=== PATIENT | male | born 1950 | race Caucasian/White ===

== ENCOUNTER 2021-06-19 15:23 | Inpatient (IN) | payer MEDICARE, OTHER, SELFPAY ==
[2021-06-19 15:43] VITALS: BP 132/66; PULSE 60; RESP 18; TEMP 37; O2SAT 98; BMI 26.0
--- NOTE | 2021-06-19 17:26 | PCM.PN.HOSP ---
Subjective Subjective 71-year-old male presents from his surgeon's office secondary to a left knee infection. He had surgery about 6 weeks ago but he was to have a left knee infection. Plan will be for orthopedic surgery to take him to the OR tomorrow for washout. He has hypertension and diabetes. Objective Data Objective Data Vital Signs: Vital Signs Temp Pulse Resp BP Pulse Ox 98.6 F 60 18 132/66 H 98 06/19/21 15:43 06/19/21 15:43 06/19/21 15:43 06/19/21 15:43 06/19/21 15:43 Oxygen Delivery Method Room Air Weight: 192 lb 4 oz Body Mass Index (BMI) 26.0 Physical Exam Const alert, oriented x3 and no apparent distress General Appearance: cooperative HEENT normocephalic and moist oral mucous membranes Eyes PERRL, EOMs intact bilaterally and conjunctivae normal Neck supple and no JVD Resp normal respiratory effort, no retractions, no use of accessory muscles and clear to auscultation bilaterally Auscultation: Negative for crackles, rales, rhonchi or wheezes Cardio regular rate, regular rhythm, S1 normal heart sound, S2 normal heart sound and no murmurs GI soft to palpation, non-tender and non-distended; Negative for hepatosplenomegaly Extremity no clubbing, cyanosis or edema Skin Skin Narrative: Left knee is swollen and red Neuro no focal motor deficits and no sensory deficits noted Psych affect normal Appearance: appropriate Assessment & Plan Assessment/Plan (1) Infection of left knee: PLAN: 1. Infection of left knee status post repair 6 weeks ago ?Consult ID for antibiotic recommendations and outpatient management ?Plan for operative washout in the morning ?PT/OT ?Pain management per primary 2. HTN/HLD ?Blood pressures are stable ?Continue with his home blood pressure medications ?Continue with statin 3. DM2 ?We will hold his home medications and place him on a sliding scale insulin as well as long-acting insulin ?Accu-Cheks AC at bedtime ?We will make adjustments as necessary DVT: SCDs Charges/Coding Visit Charges Inpatient E&M: 32458 Subs Hosp L2
[2021-06-19 20:50] VITALS: BP 141/69; PULSE 82; RESP 16; TEMP 36.6; O2SAT 98
[2021-06-19] MEDS: Atorvastatin Calcium 10 MG Tablet PO (22:04)
[2021-06-19] MEDS: amLODIPine 10 MG Tablet PO (22:04)
[2021-06-19 22:10] LABS: Bedside Glucose 192 mg/dL (74-106)
[2021-06-19] MEDS: Insulin Lispro 100 UNIT/ML INSULN.PEN SC (22:13)
[2021-06-19] MEDS: Insulin Glargine-YFGN 100 UNIT/ML Pen SC (22:14)
[2021-06-19] MEDS: Acetaminophen 500 MG Tablet 1000 MG PO (23:36)
[2021-06-19] MEDS: Lactated Ringers 1,000 ML 100 ML IV (23:37)
[2021-06-19] MEDS: 0.9% Saline Lock 10 ML Syringe IV (23:37)
[2021-06-20] VITALS (12 sets, daily range): BP systolic 135–161; BP diastolic 61–96; PULSE 79–109; RESP 16–18; TEMP 36.7–37.9; O2SAT 92–98; BMI 26.0
--- NOTE | 2021-06-20 06:00 | EKG12_ITS ---
Test Reason : MORNING EKG Blood Pressure : / mmHG Vent. Rate : 084 BPM Atrial Rate : 084 BPM P-R Int : 174 ms QRS Dur : 088 ms QT Int : 348 ms P-R-T Axes : 073 046 033 degrees QTc Int : 411 ms Sinus rhythm with occasional Premature ventricular complexes Otherwise normal ECG No previous ECGs available Confirmed by CLAUDINE BLANKENSHIP, DONA ([id number]), newspaper editor AMAURY GREER ([id number]) on 06/23/2021 2:04:28 PM Referred By: JULIANA Confirmed By:HERACLIO CHOW MD
[2021-06-20 06:31] LABS: Bedside Glucose 137 mg/dL (74-106)
[2021-06-20 06:37] LABS: Absolute Lymphocyte Count 1.78 X10^3/uL (0.83-4.51); Absolute Neutrophil Count 5.5 X10^3/uL (2.0-7.7); Basophil# 0.05 X10^3/uL; Basophil% 0.6 % (0-1); Eosinophil# 0.12 X10^3/uL; Eosinophils% 1.4 % (0-5); Hematocrit 32.3 % (40-54); Hemoglobin 10.2 g/dL (13.0-16.5); Lymphocyte # 1.78 X10^3/ul (0.83-4.51); Lymphocyte % 21.2 % (19-41); Mean Corp Hgb Conc 31.6 g/dL (32-36); Mean Corpuscular Hgb 24.2 pg (27.0-32.0); Mean Corpuscular Volume 76.7 fL (80-94); Mean Platelet Vol. 9.6 fl (6.2-12.0); Monocyte# 0.87 X10^3/uL; Monocyte% 10.4 % (0-10); NRBC Flagged by Analyzer 0 % (0-5); Neutrophil # 5.54 X10^3/uL (2.7-7.7); Neutrophil % 66.2 % (47-70); Platelet Count 378 K/mm3 (150-450); RBC Distribution Width CV 13.8 % (11.6-14.6); RBC Distribution Width SD 38.3 fl (35.1-43.9); Red Blood Count 4.21 M/mm3 (4.6-6.2); White Blood Count 8.4 K/mm3 (4.4-11.0)
[2021-06-20 07:00] LABS: Anion Gap 6 (5-15); BUN 20 mg/dL (7-18); BUN/Creat Ratio 28.7 RATIO (10-20); Calcium,Total 8.8 mg/dL (8.5-10.1); Chloride 103 mmol/L (98-107); EST Glomerular Filtration Rate 119 mL/min (>60); Est Glom Filt Rate - Afr Amer 144 mL/min (>60); Estimated Creatinine Clearance 74.37 ml/min; Glucose 129 mg/dL (74-106); Potassium 3.9 mmol/L (3.5-5.1); Sodium Level 136 mmol/L (136-145)
[2021-06-20 07:27] LABS: Hemoglobin A1c 7.3 % (3.8-5.6)
--- NOTE | 2021-06-20 08:03 | PN.HOSP_ITS ---
Subjective Subjective Follow-up on left knee infection: Patient was seen and examined. Yesterday he had his left knee replacement done in [facility] 6 weeks ago. He denied any fever or chills. He is going for knee washout today. Objective Data Objective Data Vital Signs: Vital Signs Temp Pulse Resp BP Pulse Ox 98.6 F 81 16 143/67 H 97 06/20/21 02:10 06/20/21 02:10 06/20/21 02:10 06/20/21 02:10 06/20/21 02:10 Oxygen Delivery Method CPAP Weight: 87.203 kg Body Mass Index (BMI) 26.0 Lab / Micro Data Result Diagrams: 06/20/21 06:00 06/20/21 06:00 Labs: Laboratory Results - last 24 hr 06/19/21 22:02: POC Glucose 192 H 06/20/21 06:00: WBC 8.4, RBC 4.21 L, Hgb 10.2 L, Hct 32.3 L, MCV 76.7 L, MCH 24.2 L, MCHC 31.6 L, RDW Std Deviation 38.3, RDW Coeff of Yue 13.8, Plt Count 378, MPV 9.6, Immature Gran % (Auto) 0.200, Neut % (Auto) 66.2, Lymph % (Auto) 21.2, [place] % (Auto) 10.4 H, Eos % (Auto) 1.4, Baso % (Auto) 0.6, Absolute Neuts (auto) 5.5, Absolute Lymphs (auto) 1.78, Nucleated RBC % 0 06/20/21 06:00: Sodium 136, Potassium 3.9, Chloride 103, Carbon Dioxide 27.0, A nion Gap 6, BUN 20 H, Creatinine 0.70, Estim Creat Clear Calc 74.37, Est GFR (MDRD) Af Amer 144, Est GFR (MDRD) Non-Af 119, BUN/Creatinine Ratio 28.7 H, Glucose 129 H, Calcium 8.8 06/20/21 06:00: Hemoglobin A1c 7.3 H 06/20/21 06:23: POC Glucose 137 H Micro: Microbiology 06/19/21 23:45 Nasal Secretion SARS-CoV-2 Antigen (Rapid) - Final Physical Exam Narrative Physical exam: General: Alert, Oriented x3, Cooperative, No apparent distress, Well developed HEENT: Atraumatic Oral: Moist Mucosa Neck: Supple Lungs: Clear to auscultation Cardiovascular: HS I+II, regular, no murmurs Abdomen: Bowel Sounds Present, Soft, Non Tender Extremities: Left knee swelling, warm to touch, tender to palpate,band-aid over medial aspect is intact. Assessment & Plan Assessment/Plan (1) Infection of left knee: PLAN: 1. Acute left knee infection, s/p left knee replacement 6 weeks ago No leucocytosis or fever. Patient going for knee washout Will start on empiric vancomycin and Zosyn pending intraoperative cultures ID consulted 2. Hypertension, controlled, continue on amlodipine, Lisinopril 3. Type 2 DM, blood sugars fairly controlled, HbA1c 7.3, home metformin is on hold Continue with Lantus 5 units QHS, ISS with blood glucose checks 4. Hyperlipidemia, continue on statin 5. DVT PPx- SCDs Charges/Coding Visit Charges Inpatient E&M: 05445 Subs Hosp L2
[2021-06-20] MEDS: Acetaminophen 500 MG Tablet 1000 MG PO ×2 (08:54→20:10)
[2021-06-20] MEDS: Lactated Ringers 1,000 ML 100 ML IV (09:56)
--- NOTE | 2021-06-20 11:15 | CASEMGMT ---
RN CM Face to Face with patient for initial transition planning/care coordination assessment. RN CM introduced self and role at [facility]. Patient lying in bed, alert and oriented, at bedside. Patient willing to participate in assessment and is able to answer all questions appropriately. Care providers, pharmacy, and demographics verified. Patient wishes to discharge home discussed possible HHC if patient will need IV ATBs at discharge. states they prefer [facility]HC and [facility] for infusions if need. Patient states he has no further needs or concerns at this time. CM to follow for discharge planning needs that may arise. PCP: Brian Specialists: Zully Whyte Pharmacy: [facility] Insurance: [employer] Prescription Benefit: yes Living Will/HPOA: yes, Vee Gar LNOK: , ami Living Arrangements: Patient lives with in 2 story home with bed and bath on first floor. Patient states he was independent at home. Transportation: DME/HHC: Patient states he has shower chair, cane, grab bars, walker, cpap, and pulse ox at home. Patient was attending outpatient therapy at [facility]. 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 Disposition Plan: Patient to discharge home with family support and follow-up plans in place. Will monitor for HHC for IV ATBs at discharge. Charleen DAVIDSON, RN, CM
--- NOTE | 2021-06-20 11:37 | CASEMGMT ---
Addendum entered by Danni Coleman 06/20/21 14:09: Demi @ [facility] made aware anticipate pt will d/c home on IV Vanc and Ceftriaxone 2 GM daily. Per Demi, peripheral edp equipment operator cost of IV atb tubing will be $20/day, plus pt will have cost of medication in addition to this. She states will need Vanc dosage before can determine total cost of medication. CM to f/u on Wednesday. Addendum entered by Danni Coleman 06/20/21 12:08: Call received back from [facility]. They are able to accept pt. Original Note: RN RUTHY NOTE: Informed pt will most likely need 6 wks IV atb's @ d/c and that pt would like to go home /[facility] and [facility] for infusion co, per RN Jamie BLISS. Anticipate discharge Wed or . Call placed to Demi [facility] and she was made aware of above. Referral made. Awaiting acceptance. Demographics faxed to [facility] for financials to be determined. Call placed to [facility]. She was made aware of above. Awaiting return call for insurance benefits and co-pay amt. Sparkle DAVIDSON RN, CM
--- NOTE | 2021-06-20 12:09 | CHAPLAIN ---
Type of Pastoral Visit _x__ Initial Visit ___ Follow-up Visit ___ On-call Visit ___ General Patient Visit ___ Spiritual Assessment ___ Family Conference ___ Bereavement ___ Rapid Response ___ Code Blue ___ Other (describe below) Pastoral Care Referral From _x__ Patient ___ Family ___ Nurse ___ Physician ___ Motors And Controls Tester ___ Mathematical Scientist ___ Other (describe below) Sacrament/Intervention _x__ Active listening ___ Anointing ___ Latter Day ___ Bereavement ___ Communion ___ Heidi exploration ___ ___ Life review _x__ Prayer ___ Reconciliation ___ Sacrament of Sick _x__ Supportive presence ___ Wedding ___ Other (describe below) Pastoral Comments pre surgery prayer given after listening to patient and spouse talk about their needs, concerns, and disappointments; pt is member of a local sikhism and has many people praying for him
[2021-06-20 12:20] LABS: Bedside Glucose 141 mg/dL (74-106)
--- NOTE | 2021-06-20 13:10 | PCM.CONS.GEN ---
Assessment & Plan Assessment/Plan (1) Infection of left knee: PLAN: S/p L knee replacement 05/06/[address] Andrea at [facility]. Reviewed [place] records. No cxs available. Recent course of doxy completed a week ago. OR planned for today. After surgery, plan on empiric vanc/ceftriaxone. Will follow, thank you. Encouraged covid vaccine but he is not interested. HPI Consult Data Date of Consult: 06/20/21 HPI Narrative HPI Narrative: JOSÉ MIGUEL SANCHEZ, is a 71 M who presented to [facility] 06/19 s/p L knee replacement 05/06/21 at [place]. Knee did ok post-op except for one area of incision that never healed, ongoing serous drainage with some occasional blood. No fever, no redness, some swelling. Given course of doxy which completed about a week ago. Plan is for OR today. Unvaccinated for covid. Full ROS performed and neg except as noted above. 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 CPAP (continuous positive airway pressure) dependence Diabetes Failed total left knee replacement H/O pilonidal cyst Hearing loss, left High cholesterol Hypertension Irregular heart beat Rheumatoid arthritis Sleep apnea Home Medications amlodipine [Norvasc] 10 mg PO QHS 06/19/21 [History Last Taken 06/18/21] aspirin [Baby Aspirin] 81 mg PO DAILY 06/19/21 [History Last Taken 06/19/21] empagliflozin [Jardiance] 10 mg PO QHS 06/19/21 [History Last Taken 06/18/21] lisinopril 40 mg PO DAILY 06/19/21 [History Last Taken 06/19/21] lovastatin 20 mg PO QHS 06/19/21 [History Last Taken 06/18/21] meloxicam 15 mg PO DAILY 06/19/21 [History Last Taken 06/19/21] metformin 750 mg PO BID 06/19/21 [History Last Taken 06/19/21] omeprazole 20 mg PO DAILY 06/20/21 [History Last Taken Unknown] Allergy/AdvReac Type Severity Reaction Status Date / Time No Known Drug Allergies Allergy Other Verified 06/19/21 15:59 Surgical History (Updated 06/19/21 @ 15:57 by Sandra Jorge) History of appendectomy Social History Smoking Status: Never smoker Physical Exam Const alert, oriented x3 and no apparent distress General Appearance: cooperative Exam Limitations: no limitations HEENT normocephalic and head/scalp atraumatic Eyes PERRL and EOMs intact bilaterally Neck supple and No nodes Resp normal air movement and clear to auscultation bilaterally Cardio regular rate and regular rhythm GI soft to palpation, non-tender and non-distended Extremity no clubbing, cyanosis or edema Skin Skin Narrative: L anterior knee with open wound, small amount drainage. Neuro CN's II-XII intact bilaterally Lab / Micro Data Result Diagrams: 06/20/21 06:00 06/20/21 06:00 Labs: Laboratory Results - last 24 hr 06/19/21 22:02: POC Glucose 192 H 06/20/21 06:00: WBC 8.4, RBC 4.21 L, Hgb 10.2 L, Hct 32.3 L, MCV 76.7 L, MCH 24.2 L, MCHC 31.6 L, RDW Std Deviation 38.3, RDW Coeff of Yue 13.8, Plt Count 378, MPV 9.6, Immature Gran % (Auto) 0.200, Neut % (Auto) 66.2, Lymph % (Auto) 21.2, [place] % (Auto) 10.4 H, Eos % (Auto) 1.4, Baso % (Auto) 0.6, Absolute Neuts (auto) 5.5, Absolute Lymphs (auto) 1.78, Nucleated RBC % 0 06/20/21 06:00: Sodium 136, Potassium 3.9, Chloride 103, Carbon Dioxide 27.0, Anion Gap 6, BUN 20 H, Creatinine 0.70, Estim Creat Clear Calc 74.37, Est GFR (MDRD) Af Amer 144, Est GFR (MDRD) Non-Af 119, BUN/Creatinine Ratio 28.7 H, Glucose 129 H, Calcium 8.8 06/20/21 06:00: Hemoglobin A1c 7.3 H 06/20/21 06:23: POC Glucose 137 H 06/20/21 11:22: POC Glucose 141 H Micro: Microbiology 06/19/21 23:45 Nasal Secretion SARS-CoV-2 Antigen (Rapid) - Final
--- NOTE | 2021-06-20 15:05 | KNEE_PTH ---
PATIENT: JOSÉ MIGUEL SANCHEZ LOC: MS3 U#:[id number] AGE/SX: 71/M ROOM: [facility] RE06/19/[address]: Dr. Stanley Alfred MD : 1950 BED: 1 DIS: 06/23/2021 SPEC #: [id number] RECD: 06/23/21 07:41 STATUS: DEMARIO REQ #: [id number] FARHAN: 06/20/21 15:[address]: William Andrea DEPT: SURGICAL PATHOLOGY RECD BY: Meghan Sherwood ENTERED: 06/23/21 08:56 SP TYPE: TOTAL KNEE OTHR DR: DO Dr. Stanley Barbosa MD Dr. Nicholas F Kotsonis, MD Dr. Robert Leininger, MD Dr. Steven Widmer, MD Tissues: Knee, NOS Procedures: Decalcification bone/plaque Surgery Specimen Level IV Comments: @ Ordering doctor for DEC edited from to DR.SWIDME Lea by ALIREZA at 06/23/21 1453 @ Ordering doctor for SUIV edited from to @ by ALIREZA at 06/23/21 1453 @ Submitting doctor edited from to @ by ALIREZA at 06/23/21 1453 HEADER OPERATION: Left total knee poly exchange, I & D, sinus tract excision PRE-OP DIAGNOSIS: Presence of left artificial knee joint, osteoarthritis left knee TISSUE SUBMITTED: Left knee sinus tract MICROSCOPIC DIAGNOSIS Left knee sinus tract: A piece of skin with underlying tissue with acute and chronic inflammation, abscess formation and foreign body giant cell reaction. SJ:charla 06/24/2021 COMMENT A few fragments of bone are also noted in the dermis and underlying tissue. MICROSCOPIC DESCRIPTION Slides are reviewed. GROSS DESCRIPTION Received in fixative is one container labeled with the patient's name and designated left knee sinus tract. The specimen consists of a piece of skin with underlying tissue measuring 4 x 1.2 cm and up to 1 cm in thickness. The skin surface shows focal area of ulceration. Rug Cutter sections are submitted in two cassettes. / JAIME:charla 06/23/2021 TC:2 CPT: 78426
[2021-06-20] MEDS: Lactated Ringers 1,000 ML 30 ML IV (15:30)
[2021-06-20] MEDS: Cefazolin 2 GM in 0.9% Normal Saline 100 ML IV (16:12)
--- NOTE | 2021-06-20 16:59 | OP.PCM_ITS ---
Report of Operation Date of Procedure: 06/20/21 Pre-Operative Diagnosis: Left knee draining wound/periprosthetic joint infection acute Post-Operative Diagnosis: Left knee draining wound/acute periprosthetic joint infection Surgery/Procedure Performed:: 1. Irrigation debridement left total knee replacement with polyethylene exchange 2. Complete synovectomy left knee 3. Sinus tract excision 3 cm x 1 cm left knee Description of Surgical Findings:: Sinus tract communicated from outside joint down into the knee through the arthrotomy. Surgeon: William Andrea brake shoe rebuilder: Allen Levine Type of Anesthesia: General Anesthesiologist: Nakul Escobedo Special Medications: Ancef was given after cultures were taken. Vancomycin 1 g was placed in the wound prior to closure. Specimen's removed: 3 separate specimens were sent to microbiology Estimated Blood Loss (mL): 200 Fluids Replaced: 1500 mL crystalloid Description of Procedure: 71 yo M history of L TKA 6 weeks ago presents with trinidad ining sinus wound and anterior knee. Reviewed options were discussed the patient. Based on acuity of the symptoms and organism irrigation debridement with polyethylene exchange is recommended. Risks and benefits of the procedure were discussed with the patient including but not limited to blood loss, DVTs, PEs, neurovascular damage, infection, general risk of anesthesia including loss of life. Demonstrated understanding and was able to sign informed consent. On the date of procedure patient'sL lower extremity was marked in the preoperative area. The patient was then taken back to the operating room where the patient was placed on the table in the supine position. All bony prominences were identified a well-padded. Anesthesia assumed control of the C-spine and airway and remained controlled throughout the remainder of the procedure. A tourniquet was placed on the operative thigh and the leg was prepped in a sterile fashion. The surgeon then scrubbed at this time .Upon reentering the room left lower extremity was draped in a standard orthopedic fashion. A timeout was then called and everyone agreed upon the side, the site, the procedure to be performed, patient's identity and antibiotics given. A midline skin incision was made and sharp dissection was taken down through skin subcutaneous tissue and fat. At the distal portion of the incision there was a 3 cm x 1 cm draining sinus area which was ellipsed and excised. This communicated down into the joint through the arthrotomy. Appropriate flaps were elevated medially and laterally. His arthrotomy was identified and the standard medial parapatellar incision was made and the patella was subluxed laterally. The standard deep MCL release was done. At this point an aggressive synovectomy commenced. Our attention was first turned towards the subpatellar pouch and all suspicious synovium and tissues were debrided. We then directed our attention towards medial lateral gutters were these tissues were aggressively debrided. Knee was then flexed up the polyethylene was removed. Once polyethylene was removed we did the remainder of the synovium in the medial and lateral gutters and along the lateral structures and MCL. We then debrided the posterior knee. Knee was flexed up and culture was taken from the femoral notch. And also there was a membrane beneath the tibial baseplate that was removed and sent for culture. He had completed our synovectomy and were happy with the joint. We then used a chlorahexadine scrub sponge and physically scrub the metal implants using a scrub sponge but nothing abrasive. We also scrubbed the remainder of the wound with chlorhexidine. 6 L of normal saline were then irrigated throughout the wound with low-pressure lavage and the wound was once again explored. All remaining tissue that was suspicious was seen in the wound was once again irrigated with normal saline. 9 mm polyethylene was then opened and put back into place after appropriate trialing. Tourniquet was let down and hemostasis was obtained as well as possible. Lateral drain was placed in 2 g of vancomycin powder were placed in the wound/joint. Once the final components were placed the wound was copiously irrigated with normal saline solution. The wound was closed in a layer tejada fashion using #1 vicryl interrupted sutures for the arthrotomy, 2-0 interrupted Vicryl for the subcuticular layer and evaristo for final skin closure proximally, nylons distally where the most skin tension was from the excised sinus tract. A sterile compressive dressing was then placed. The patient was then awakened from anesthesia, transferred to the [facility] and transferred to the PACU for recovery. Post op plan Infectious diseases already seen and evaluated the patient patient will be placed on ceftriaxone and vancomycin for broad-spectrum treatment postoperatively until we follow cultures. Aspirin 81 mg twice daily for DVT prophylaxis. Weightbearing as tolerated, range of motion as tolerated. Follow- up in office in 2 weeks. Mepilex dressing. My physician cabin service agent (PE) was a vital part of this case. They were important in appropriate retraction during the case, and protection of soft tissues during bony cuts. Their intimate knowledge of the case and my steps aided in safe and expedient completion of the procedure as well as appropriate position of the leg during the case. They were also vital in assisting with closure under my direct supervision. Grafts/Implants Used: Quimby X3 9 mm CS polyethylene Complications No intraoperative complications Admit VTE Documentation VTE Present on Admission: No VTE Mechan Device Prophylaxis: SCD's and Thigh High RENETTA Hose VTE Pharm Prophylaxis ordered?: Yes
--- NOTE | 2021-06-20 17:38 | RAD_ITS ---
EXAM: XR LEFT KNEE, 1 OR 2 VIEWS CLINICAL INDICATION: post op -- AP and Lateral xray of operative knee in PACU TECHNIQUE: Frontal and/or lateral views of the left knee. This report was created using [employer] report [employer] technology. COMPARISON: None. FINDINGS: BONES/JOINTS: Left knee arthroplasty with prosthesis in good position. Overlying skin evaristo. Gas within the joint and soft tissues. No acute fracture. No subluxation. Normal alignment. No sclerotic or destructive changes observed. SOFT TISSUES: See findings above and below. TUBES, LINES AND DEVICES: Drain in the soft tissues laterally. RAD/Knee 1 or 2 Views IMPRESSION: Status post total knee arthroplasty with a prosthesis in good position. Electronically Signed: Leobardo Feliciano MD at 18:02 EDT ,
[2021-06-20 17:41] LABS: Synovial Fld Polynuclear WBC # 7.397 10^3/uL
[2021-06-20 17:42] LABS: RBC /Synovial Fluid 0.471 10^6/uL (0)
[2021-06-20 17:56] LABS: Bedside Glucose 165 mg/dL (74-106)
[2021-06-20] MEDS: Lactated Ringers 1,000 ML 125 ML IV (18:20)
[2021-06-20] MEDS: Morphine 2 MG/ML Syringe IV (19:06)
[2021-06-20] MEDS: 0.9% Saline Lock 10 ML Syringe IV (19:07)
[2021-06-20 19:28] LABS: AUTO B FLUID DILUENT BKGD CT WBC <0.1 RBC <0.01 (W<.1,R<.01); Appearance /Synovial Fluid Turbid (CLEAR); Color / Synovial Fluid Red (Pale Yellow); Lymph 4 %; Monocyte /Synovial Fluid 6 %; Neutrophil 90 % (0-25); Source / Synovial Fluid KNEE
[2021-06-20 19:29] LABS: Body Fluid QC Type(s) BF3Q
[2021-06-20] MEDS: oxyCODONE 5 MG Tablet PO (20:11)
[2021-06-20] MEDS: Ensure Surgery 237 ML LIQUID PO (20:12)
--- NOTE | 2021-06-20 21:06 | PCM.RX.CS ---
Consult Pharmacy has been consulted to manage selected antiobiotic: Vancomycin Type of Consult: New start Suspected Infection: Other Labs: Sodium 136 mmol/L (136-145) 06/20/21 06:00 Potassium 3.9 mmol/L (3.5-5.1) 06/20/21 06:00 Chloride 103 mmol/L (98-107) 06/20/21 06:00 Carbon Dioxide 27.0 mmol/L (21.0-32.0) 06/20/21 06:00 Anion Gap 6 (5-15) 06/20/21 06:00 BUN 20 mg/dL (7-18) H 06/20/21 06:00 Creatinine 0.70 mg/dL (0.70-1.30) 06/20/21 06:00 Est GFR (MDRD) Af Amer 144 mL/min (>60) 06/20/21 06:00 Est GFR (MDRD) Non-Af 119 mL/min (>60) 06/20/21 06:00 BUN/Creatinine Ratio 28.7 RATIO (10-20) H 06/20/21 06:00 Glucose 129 mg/dL (74-106) H 06/20/21 06:00 Microbiology: Microbiology 06/19/21 23:45 Nasal Secretion SARS-CoV-2 Antigen (Rapid) - Final Goal Trough: 15-20 mcg/mL Pharmacy Plan for Drug Dosing: NEW START IV VANCOMYCIN Consulting Physician: yobani Indication: infected knee Goal Trough: 15-20 SrCr: 0.8 (adjusted for age) CrCl: 74 mls/min Comments: pt received a 2000mg loading dose on 06/20/21 at 2100 Vancomcyin Dose: based on pts weight and renal function, recommend an intitial dose of Vancomycin 1250mg q12h starting 06/21/21 at 0900. trough before the 4th total dose Pending Level: 06/22/21 at 0830 Pharmacy Service will continue to monitor and adjust dosing as required. Follow-Up Labs: Trough Vancomycin - 06/22/21 at 0830
[2021-06-20] MEDS: amLODIPine 10 MG Tablet PO (21:37)
[2021-06-20] MEDS: Aspirin 81 MG TAB.CHEW PO (21:37)
[2021-06-20] MEDS: Insulin Glargine-YFGN 100 UNIT/ML Pen SC (21:37)
[2021-06-20] MEDS: Atorvastatin Calcium 10 MG Tablet PO (21:37)
[2021-06-20] MEDS: Senna/Docusate Sodium 1 Tablet 2 TABLET PO (21:37)
[2021-06-20 21:45] LABS: Bedside Glucose 283 mg/dL (74-106)
[2021-06-21] MEDS: Acetaminophen 500 MG Tablet 1000 MG PO ×3 (02:07→17:27)
[2021-06-21 02:53] VITALS: BP 151/79; PULSE 94; RESP 16; TEMP 37.1; O2SAT 97
[2021-06-21] MEDS: oxyCODONE 5 MG Tablet PO ×3 (06:06→17:36)
[2021-06-21] MEDS: Insulin Lispro 100 UNIT/ML INSULN.PEN SC ×4 (06:27→21:53)
[2021-06-21 06:28] LABS: Hematocrit 31.4 % (40-54); Hemoglobin 9.8 g/dL (13.0-16.5); Mean Corp Hgb Conc 31.2 g/dL (32-36); Mean Corpuscular Hgb 23.9 pg (27.0-32.0); Mean Corpuscular Volume 76.6 fL (80-94); Mean Platelet Vol. 9.7 fl (6.2-12.0); Platelet Count 426 K/mm3 (150-450); RBC Distribution Width CV 13.7 % (11.6-14.6)
[2021-06-21 06:55] LABS: Anion Gap 6 (5-15); BUN 20 mg/dL (7-18); BUN/Creat Ratio 26.2 RATIO (10-20); Calcium,Total 8.6 mg/dL (8.5-10.1); Chloride 102 mmol/L (98-107); Creatinine, Serum 0.76 mg/dL (0.70-1.30); EST Glomerular Filtration Rate 107 mL/min (>60); Est Glom Filt Rate - Afr Amer 129 mL/min (>60); Estimated Creatinine Clearance 74.37 ml/min; Glucose 166 mg/dL (74-106); Potassium 4.1 mmol/L (3.5-5.1); Sodium Level 135 mmol/L (136-145)
--- NOTE | 2021-06-21 08:02 | PCM.PN.ORT ---
Subjective Subjective The patient was sitting in bed upon examination. Patient denies any chest pain, shortness of breath, dizziness, lightheadedness, nausea or vomiting, or calf pain. Pain is controlled on medications. No adverse overnight events. Patient appears to be doing very well this morning. Overnight he did have some tachycardia. He denies any chest pain or racing heart. Patient states the pain has been controlled. He did have cultures intraoperatively and currently are pending. Infectious disease has been consulted and he is on ceftriaxone and vancomycin while following cultures. Objective Data Objective Data Vital Signs: Vital Signs Temp Pulse Resp BP Pulse Ox 98.7 F 94 16 151/79 H 97 06/21/21 02:53 06/21/21 02:53 06/21/21 02:53 06/21/21 02:53 06/21/21 02:53 Oxygen Delivery Method CPAP Weight: 87.203 kg Body Mass Index (BMI) 26.0 Intake & Output: Intake and Output for Last 24 Hours 06/19/21 06/20/21 06/21/21 23:59 23:59 23:59 Intake Total 3908.33 / 3908.33 Output Total 810 / 810 1000 / 1000 Balance 3098.33 / 3098.33 -1000 / -1000 Lab / Micro Data Result Diagrams: 06/21/21 05:54 06/21/21 05:54 Labs: Laboratory Results - last 24 hr 06/20/21 11:22: POC Glucose 141 H 06/20/21 15:37: Synovial Source KNEE, Synovial Color Red, Synovial Appearance Turbid, Synovial WBC 41.5700 H, Synovial RBC 0.471 H, Synovial Tot Cell Ct 41.8550 H, Synov Polynuclear WBCs 7.397, Synovial Neutrophils 90 H, Synovial Lymphocytes 4, Synovial Monocytes 6, Synovial Polynuclear % 89.0, Synovial Mononuclear % 11.0, Synovial Path Comment May follow 06/20/21 17:52: POC Glucose 165 H 06/20/21 21:35: POC Glucose 283 H 06/21/21 05:54: WBC 10.0, RBC 4.10 L, Hgb 9.8 L, Hct 31.4 L, MCV 76.6 L, MCH 23.9 L, MCHC 31.2 L, RDW Std Deviation 38.0, RDW Coeff of Yue 13.7, Plt Count 426, MPV 9.7 04/16/22 05:54: Sodium 135 L, Potassium 4.1, Chloride 102, Carbon Dioxide 27.0, Anion Gap 6, BUN 20 H, Creatinine 0.76, Estim Creat Clear Calc 74.37, Est GFR (MDRD) Af Amer 129, Est GFR (MDRD) Non-Af 107, BUN/Creatinine Ratio 26.2 H, Glucose 166 H, Calcium 8.6 Micro: Microbiology 06/19/21 23:45 Nasal Secretion SARS-CoV-2 Antigen (Rapid) - Final Radiography Diagnostic Testing: Radiology Impression Knee X-Ray 06/20/21 17:38 IMPRESSION: Status post total knee arthroplasty with a prosthesis in good position. Electronically Signed: Leobardo Feliciano MD at 18:02 EDT , Physical Exam Narrative Vital signs stable and afebrile. Overnight patient did have low-grade fever and tachycardia. Currently denies any chest pain or shortness of breath. Overall appears well this morning SCDs and RENETTA hose are placed bilaterally Patient is able to plantarflex and dorsiflex actively. Sensation is intact to light touch to saphenous, sural, superficial and deep peroneal, and tibial distribution. Dressing is clean dry and intact. Hemovac drain in place: Mild amount in canister. Per documentation appears to have had 110 cc of output from the drain. Negative Homans bilaterally, negative signs and symptoms of DVT. Const alert, oriented x3 and no apparent distress Assessment & Plan Assessment/Plan (1) Infection of left knee: PLAN: 1. S/P irrigation debridement left total knee replacement with polyethylene exchange, complete synovectomy left knee, and excision sinus tract POD #1 2. Continue Pain Medications: Tylenol and oxycodone 3. DVT Prophylaxis: Take 81 mg aspirin twice daily for 4 weeks postoperatively for DVT prophylaxis 4. PT/OT: Weightbearing as tolerated with walker 5. H & H: 9.8/31.4, asymptomatic. Postoperative anemia secondary to acute blood loss from surgery without any intra operative complications. 6. Continue postoperative medical management per medicine 7. Consultation infectious disease: Infectious disease has placed patient on ceftriaxone and vancomycin. Cultures are currently pending 8. Hemovac drain: We will continue with drain for minimum 2 days postoperatively. We will reassess output tomorrow. According to documentation it appears there is been 110 cc output from the drain. 9. Encouraged Incentive Spirometry 10. Disposition: Continue to follow patient with cultures and appreciate input from infectious disease. Continue with physical therapy weightbearing as tolerated with walker. We will follow patient tomorrow with the possibility of removal of drain. I have reviewed the [place] Automated Rx Reporting System (OARRS) report for this patient for refill pattern and other prescriber involvement as part of the appropriate surveillance for the provision of acute and chronic controlled medications. The report was requested and reviewed on the date of this entry and was considered in the prescribing process.
--- NOTE | 2021-06-21 08:14 | PN.HOSP_ITS ---
Subjective Subjective Follow-up on post-op left knee infection: Patient was seen and examined. He denies any new complaints. His pain is controlled. No acute events overnight. Denies any fever or chills. Intraoperative cultures are pending. Objective Data Objective Data Vital Signs: Vital Signs Temp Pulse Resp BP Pulse Ox 98.7 F 94 16 151/79 H 97 06/21/21 02:53 06/21/21 02:53 06/21/21 02:53 06/21/21 02:53 06/21/21 02:53 Oxygen Delivery Method CPAP Weight: 87.203 kg Body Mass Index (BMI) 26.0 Intake & Output: Intake and Output for Last 24 Hours 06/19/21 06/20/21 06/21/21 23:59 23:59 23:59 Intake Total 3908.33 / 3908.33 Output Total 810 / 810 1000 / 1000 Balance 3098.33 / 3098.33 -1000 / -1000 Lab / Micro Data Result Diagrams: 06/21/21 05:54 06/21/21 05:54 Labs: Laboratory Results - last 24 hr 06/20/21 11:22: POC Glucose 141 H 06/20/21 15:37: Synovial Source KNEE, Synovial Color Red, Synovial Appearance Turbid, Synovial WBC 41.5700 H, Synovial RBC 0.471 H, Synovial Tot Cell Ct 41.8550 H, Synov Polynuclear WBCs 7.397, Synovial Neutrophils 90 H, Synovial Lymphocytes 4, Synovial Monocytes 6, Synovial Polynuclear % 89.0, Synovial Mononuclear % 11.0, Synovial Path Comment May follow 06/20/21 17:52: POC Glucose 165 H 06/20/21 21:35: POC Glucose 283 H 06/21/21 05:54: WBC 10.0, RBC 4.10 L, Hgb 9.8 L, Hct 31.4 L, MCV 76.6 L, MCH 23.9 L, MCHC 31.2 L, RDW Std Deviation 38.0, RDW Coeff of Yue 13.7, Plt Count 426, MPV 9.7 06/21/21 05:54: Sodium 135 L, Potassium 4.1, Chloride 102, Carbon Dioxide 27.0, Anion Gap 6, BUN 20 H, Creatinine 0.76, Estim Creat Clear Calc 74.37, Est GFR (MDRD) Af Amer 129, Est GFR (MDRD) Non-Af 107, BUN/Creatinine Ratio 26.2 H, Glucose 166 H, Calcium 8.6 Micro: Microbiology 06/19/21 23:45 Nasal Secretion SARS-CoV-2 Antigen (Rapid) - Final Radiography Diagnostic Testing: Radiology Impression Knee X-Ray 06/20/21 17:38 IMPRESSION: Status post total knee arthroplasty with a prosthesis in good position. Electronically Signed: Leobardo Feliciano MD at 18:02 EDT , Physical Exam Narrative Physical exam: General: Alert, Oriented x3, Cooperative, No apparent distress HEENT: Atraumatic Oral: Moist Mucosa Neck: Supple Lungs: Clear to auscultation Cardiovascular: HS I+II, regular, no murmurs Abdomen: Bowel Sounds Present, Soft, Non Tender Extremities: Left knee swollen, cooling mat in place Assessment & Plan Assessment/Plan (1) Infection of left knee: PLAN: 1. POD #0 s/p irrigation and irrigation of the left knee replacement with polyethylene exchange/complete synovectomy/sinus tract excision. Patient had left knee replacement 6 weeks ago in [facility] Synovial fluid analysis showed WBC count of 41,000+ Intraoperative cultures are pending Continue on empiric vancomycin and ceftriaxone ID consulted 2. Hypertension, controlled, continue on amlodipine, Lisinopril 3. Type 2 DM, blood sugars fairly controlled, HbA1c 7.3, home metformin on hold Increase Lantus to 10 units QHS, continue with ISS with blood glucose checks 4. Hyperlipidemia, continue on statin 5. DVT PPx- SCDs Charges/Coding Visit Charges Inpatient E&M: 62340 Subs Hosp L2
[2021-06-21] MEDS: Pantoprazole Sodium 20 MG Tablet PO (08:39)
[2021-06-21 08:51] VITALS: BP 145/70; PULSE 95; RESP 16; TEMP 36.6; O2SAT 97
[2021-06-21] MEDS: Aspirin 81 MG TAB.CHEW PO ×2 (09:02→21:53)
[2021-06-21] MEDS: Lisinopril 40 MG Tablet PO (09:02)
[2021-06-21] MEDS: Senna/Docusate Sodium 1 Tablet 2 TABLET PO ×2 (09:03→21:55)
[2021-06-21 12:06] LABS: Bedside Glucose 240 mg/dL (74-106)
[2021-06-21 12:06] LABS: Bedside Glucose 153 mg/dL (74-106)
[2021-06-21 15:04] VITALS: BP 116/69; PULSE 83; RESP 16; TEMP 36.7; O2SAT 96
[2021-06-21 16:26] LABS: Bedside Glucose 220 mg/dL (74-106)
[2021-06-21] MEDS: Ensure Surgery 237 ML LIQUID PO (17:24)
[2021-06-21 20:19] VITALS: BP 134/69; PULSE 85; RESP 18; TEMP 37; O2SAT 95
[2021-06-21] MEDS: Morphine 2 MG/ML Syringe IV (20:33)
[2021-06-21] MEDS: 0.9% Saline Lock 10 ML Syringe IV (20:33)
[2021-06-21] MEDS: Atorvastatin Calcium 10 MG Tablet PO (21:54)
[2021-06-21] MEDS: Insulin Glargine-YFGN 100 UNIT/ML Pen 10 UNIT SC (21:54)
[2021-06-21] MEDS: amLODIPine 10 MG Tablet PO (21:55)
[2021-06-21 22:06] LABS: Bedside Glucose 231 mg/dL (74-106)
[2021-06-22] MEDS: 0.9% Saline Lock 10 ML Syringe IV ×3 (01:39→11:26)
[2021-06-22] MEDS: Morphine 2 MG/ML Syringe IV ×3 (01:39→11:26)
[2021-06-22] MEDS: Acetaminophen 500 MG Tablet 1000 MG PO ×3 (01:41→17:40)
[2021-06-22 01:52] VITALS: BP 129/61; PULSE 85; RESP 18; TEMP 36.8; O2SAT 96
[2021-06-22 05:56] LABS: Hematocrit 29.9 % (40-54); Hemoglobin 9.5 g/dL (13.0-16.5); Mean Corp Hgb Conc 31.8 g/dL (32-36); Mean Corpuscular Hgb 24.4 pg (27.0-32.0); Mean Corpuscular Volume 76.9 fL (80-94); Mean Platelet Vol. 9.9 fl (6.2-12.0); Platelet Count 364 K/mm3 (150-450); RBC Distribution Width SD 38.7 fl (35.1-43.9); Red Blood Count 3.89 M/mm3 (4.6-6.2); White Blood Count 8.6 K/mm3 (4.4-11.0)
[2021-06-22 06:29] LABS: ALB/GLOB Ratio 0.7 RATIO (0.9-2.4); AST(SGOT) 13 U/L (15-37); Alanine Aminotransfer ALT/SGPT 20 U/L (16-61); Albumin, Serum 2.8 g/dL (3.2-5.0); Alkaline Phosphatase 85 U/L (45-117); Anion Gap 4 (5-15); BUN 20 mg/dL (7-18); BUN/Creat Ratio 25.5 RATIO (10-20); Calcium,Total 8.6 mg/dL (8.5-10.1); Chloride 103 mmol/L (98-107); Creatinine, Serum 0.78 mg/dL (0.70-1.30); EST Glomerular Filtration Rate 104 mL/min (>60); Est Glom Filt Rate - Afr Amer 125 mL/min (>60); Estimated Creatinine Clearance 74.37 ml/min; Globulin 3.8 g/dL (2.2-4.2); Glucose 165 mg/dL (74-106); Potassium 4.4 mmol/L (3.5-5.1); Protein, Total 6.6 g/dL (6.4-8.2); Sodium Level 135 mmol/L (136-145)
[2021-06-22] MEDS: Lactated Ringers 1,000 ML 15 ML IV (07:08)
[2021-06-22] MEDS: Insulin Lispro 100 UNIT/ML INSULN.PEN SC ×4 (07:12→21:01)
[2021-06-22 07:20] LABS: Bedside Glucose 167 mg/dL (74-106)
--- NOTE | 2021-06-22 07:25 | PN.HOSP_ITS ---
Subjective Subjective Follow-up on post-op left knee infection: Patient was seen and examined. He complains of pain in left knee. No acute events overnight. He denies any fever, chills, diarrhea or nausea. Objective Data Objective Data Vital Signs: Vital Signs Temp Pulse Resp BP Pulse Ox 98.2 F 85 18 129/61 H 96 06/22/21 01:52 06/22/21 01:52 06/22/21 01:52 06/22/21 01:52 06/22/21 01:52 Oxygen Delivery Method Room Air Weight: 87.203 kg Body Mass Index (BMI) 26.0 Intake & Output: Intake and Output for Last 24 Hours 06/20/21 06/21/21 06/22/21 23:59 23:59 23:59 Intake Total 3908.33 / 3908.33 600 / 800 787.75 / 787.75 Output Total 810 / 810 1425 / 1428 403 / 403 Balance 3098.33 / 3098.33 -825 / -628 384.75 / 384.75 Lab / Micro Data Result Diagrams: 06/22/21 04:57 06/22/21 04:57 Labs: Laboratory Results - last 24 hr 06/21/21 06:25: POC Glucose 153 H 06/21/21 11:45: POC Glucose 240 H 06/21/21 16:05: POC Glucose 220 H 06/21/21 21:52: POC Glucose 231 H 06/22/21 04:57: WBC 8.6, RBC 3.89 L, Hgb 9.5 L, Hct 29.9 L, MCV 76.9 L, MCH 24.4 L, MCHC 31.8 L, RDW Std Deviation 38.7, RDW Coeff of Yue 14.0, Plt Count 364, MPV 9.9 06/22/21 04:57: Sodium 135 L, Potassium 4.4, Chloride 103, Carbon Dioxide 28.0, Anion Gap 4 L, BUN 20 H, Creatinine 0.78, Estim Creat Clear Calc 74.37, Est GFR (MDRD) Af Amer 125, Est GFR (MDRD) Non-Af 104, BUN/Creatinine Ratio 25.5 H, Glucose 165 H, Calcium 8.6, Total Bilirubin 0.30, AST 13 L, ALT 20, Alkaline Phosphatase 85, Total Protein 6.6, Albumin 2.8 L, Globulin 3.8, Albumin/Globulin Ratio 0.7 L 06/22/21 07:04: POC Glucose 167 H Micro: Microbiology 06/20/21 15:37 Fluid - Synovial (joint) Gram Stain - Final 06/20/21 15:37 Fluid - Synovial (joint) Body Fluid Culture - Preliminary No growth-Final to follow 06/20/21 Unknown Tissue - Knee Gram Stain - Final 06/20/21 Unknown Tissue - Knee Wound Culture - Preliminary No growth-Final to follow 06/20/21 Unknown Tissue - Knee Gram Stain - Final 06/20/21 Unknown Tissue - Knee Wound Culture - Preliminary No growth-Final to follow 06/20/21 Unknown Tissue - Knee Gram Stain - Final 06/20/21 Unknown Tissue - Knee Wound Culture - Preliminary No growth-Final to follow 06/19/21 23:45 Nasal Secretion SARS-CoV-2 Antigen (Rapid) - Final Physical Exam Narrative Physical exam: General: Alert, Oriented x3, Cooperative, No apparent distress HEENT: Atraumatic Oral: Moist Mucosa Neck: Supple Lungs: Clear to auscultation Cardiovascular: HS I+II, regular, no murmurs Abdomen: Bowel Sounds Present, Soft, Non Tender Extremities: Left knee dressing is intact and clean, cooling mat in place Assessment & Plan Assessment/Plan (1) Infection of left knee: PLAN: 1. POD #2 s/p irrigation and irrigation of the left knee replacement with polyethylene exchange/complete synovectomy/sinus tract excision. Patient had left knee replacement 6 weeks ago in [facility] Synovial fluid analysis showed WBC count of 41,000+ Intraoperative cultures are pending Continue on empiric vancomycin and ceftriaxone ID consulted 2. Hypertension, controlled, continue on amlodipine, Lisinopril 3. Type 2 DM, blood sugars fairly controlled, HbA1c 7.3, home metformin on hold Continue on Lantus to 10 units QHS, continue with ISS with blood glucose checks 4. Hyperlipidemia, continue on statin 5. DVT PPx- SCDs Charges/Coding Visit Charges Inpatient E&M: 79169 Subs Hosp L2
[2021-06-22 09:26] LABS: Vancomycin, Trough Level 11.5 ug/mL (5.0-15.0)
[2021-06-22 09:44] VITALS: BP 138/67; PULSE 89; RESP 16; TEMP 36.6; O2SAT 96
[2021-06-22] MEDS: oxyCODONE 5 MG Tablet PO ×2 (09:56→14:22)
[2021-06-22] MEDS: Senna/Docusate Sodium 1 Tablet 2 TABLET PO (09:56)
[2021-06-22] MEDS: Pantoprazole Sodium 20 MG Tablet PO (09:57)
[2021-06-22] MEDS: Aspirin 81 MG TAB.CHEW PO ×2 (09:57→21:01)
[2021-06-22] MEDS: Lisinopril 40 MG Tablet PO (09:57)
--- NOTE | 2021-06-22 10:31 | PCM.RX.CS ---
Consult Pharmacy has been consulted to manage selected antiobiotic: Vancomycin Type of Consult: Follow-up Suspected Infection: Skin/Soft tissue Labs: Sodium 135 mmol/L (136-145) L 06/22/21 04:57 Potassium 4.4 mmol/L (3.5-5.1) 06/22/21 04:57 Chloride 103 mmol/L (98-107) 06/22/21 04:57 Carbon Dioxide 28.0 mmol/L (21.0-32.0) 06/22/21 04:57 Anion Gap 4 (5-15) L 06/22/21 04:57 BUN 20 mg/dL (7-18) H 06/22/21 04:57 Creatinine 0.78 mg/dL (0.70-1.30) 06/22/21 04:57 Est GFR (MDRD) Af Amer 125 mL/min (>60) 06/22/21 04:57 Est GFR (MDRD) Non-Af 104 mL/min (>60) 06/22/21 04:57 BUN/Creatinine Ratio 25.5 RATIO (10-20) H 06/22/21 04:57 Glucose 165 mg/dL (74-106) H 06/22/21 04:57 Vancomycin Trough 11.5 ug/mL (5.0-15.0) 06/22/21 08:31 Microbiology: Microbiology 06/20/21 15:37 Fluid - Synovial (joint) Gram Stain - Final 06/20/21 15:37 Fluid - Synovial (joint) Body Fluid Culture - Preliminary No growth-Final to follow 06/20/21 Unknown Tissue - Knee Gram Stain - Final 06/20/21 Unknown Tissue - Knee Wound Culture - Preliminary No growth-Final to follow 06/20/21 Unknown Tissue - Knee Gram Stain - Final 06/20/21 Unknown Tissue - Knee Wound Culture - Preliminary No growth-Final to follow 06/20/21 Unknown Tissue - Knee Gram Stain - Final 06/20/21 Unknown Tissue - Knee Wound Culture - Preliminary No growth-Final to follow 06/19/21 23:45 Nasal Secretion SARS-CoV-2 Antigen (Rapid) - Final Goal Trough: 15-20 mcg/mL Pharmacy Plan for Drug Dosing: VANCOMYCIN LEVEL RECEIVED Current Vancomycin Dose: 1250mg IV Q12h Number of Doses Received: 4 (3 prior to trough draw) Vancomycin Level: 11.5 Hours Since Last Dose: 12hr Renal Function: 0.78 Renal Function Trend: stable Lab/Micro: tissue cultures growing GPC, no ID/ sensitivity at this time. Vancomycin Plan/Comments: The patient had a trough drawn which resulted in a value of 11.5 (goal trough 15-20). Since the patient's cultures are growing GPC and the trough was subtherapeutic, will plan on increasing dose. Of note, the patient already had morning dose of vancomycin, so new regimen will start this evening. Will increase vancomycin to 1500mg IV Q12hr to start 06/22/21 @2100 Pending Level: 06/24/21 @0830, prior to 4th dose of new regimen. Pharmacy Service will continue to monitor and adjust dosing as required.
[2021-06-22] MEDS: Ensure Surgery 237 ML LIQUID PO ×2 (11:37→17:40)
[2021-06-22 11:51] LABS: Bedside Glucose 203 mg/dL (74-106)
--- NOTE | 2021-06-22 12:40 | PN.ORTHO_ITS ---
Subjective Subjective Patient doing well overall. Sitting comfortably in bed. Does have significant pain on assessment of vital signs patient's pain is 8 out of 10. He is requiring full dose of oxycodone and IV morphine. Otherwise no chest pain or shortness of breath. No calf pain. Patient has been afebrile. Objective Data Objective Data Vital Signs: Vital Signs Temp Pulse Resp BP Pulse Ox 97.8 F 89 16 138/67 H 96 06/22/21 09:44 06/22/21 09:44 06/22/21 09:44 06/22/21 09:44 06/22/21 09:44 Oxygen Delivery Method Room Air Weight: 192 lb 3.995 oz Body Mass Index (BMI) 26.0 Intake & Output: Intake and Output for Last 24 Hours 06/20/21 06/21/21 06/22/21 23:59 23:59 23:59 Intake Total 3908.33 / 3908.33 600 / 800 1112.75 / 1112.75 Output Total 810 / 810 1425 / 1428 403 / 403 Balance 3098.33 / 3098.33 -825 / -628 709.75 / 709.75 Lab / Micro Data Result Diagrams: 06/22/21 04:57 06/22/21 04:57 Labs: Laboratory Results - last 24 hr 06/21/21 16:05: POC Glucose 220 H 06/21/21 21:52: POC Glucose 231 H 06/22/21 04:57: WBC 8.6, RBC 3.89 L, Hgb 9.5 L, Hct 29.9 L, MCV 76.9 L, MCH 24.4 L, MCHC 31.8 L, RDW Std Deviation 38.7, RDW Coeff of Yue 14.0, Plt Count 364, MPV 9.9 06/22/21 04:57: Sodium 135 L, Potassium 4.4, Chloride 103, Carbon Dioxide 28.0, Anion Gap 4 L, BUN 20 H, Creatinine 0.78, Estim Creat Clear Calc 74.37, Est GFR (MDRD) Af Amer 125, Est GFR (MDRD) Non-Af 104, BUN/Creatinine Ratio 25.5 H, Glucose 165 H, Calcium 8.6, Total Bilirubin 0.30, AST 13 L, ALT 20, Alkaline Phosphatase 85, Total Protein 6.6, Albumin 2.8 L, Globulin 3.8, Albumin/Globulin Ratio 0.7 L 06/22/21 07:04: POC Glucose 167 H 06/22/21 08:31: Vancomycin Trough 11.5 06/22/21 11:22: POC Glucose 203 H Micro: Microbiology 06/20/21 15:37 Fluid - Synovial (joint) Gram Stain - Final 06/20/21 15:37 Fluid - Synovial (joint) Body Fluid Culture - Preliminary No growth-Final to follow 06/20/21 Unknown Tissue - Knee Gram Stain - Final 06/20/21 Unknown Tissue - Knee Wound Culture - Preliminary No growth-Final to follow 06/20/21 Unknown Tissue - Knee Gram Stain - Final 06/20/21 Unknown Tissue - Knee Wound Culture - Preliminary No growth-Final to follow 06/20/21 Unknown Tissue - Knee Gram Stain - Final 06/20/21 Unknown Tissue - Knee Wound Culture - Preliminary No growth-Final to follow 06/19/21 23:45 Nasal Secretion SARS-CoV-2 Antigen (Rapid) - Final Physical Exam Const alert, oriented x3 and no apparent distress General Appearance: cooperative, comfortable and well kempt Extremity Extremity Narrative: Left lower extremity: Dressing is clean dry and intact Sensations intact to light touch saphenous, sural, superficial peroneal, deep peroneal, and tibial distributions Motors intact EHL, DF, PF calves are soft and supple Minimal drain output so drain was removed today. Dark red blood did come from the drain site afterwards. Compressive dressing was placed. Assessment & Plan Assessment/Plan (1) Infection of left knee: PLAN: 1. S/P irrigation debridement left total knee replacement with polyethylene exchange, complete synovectomy left knee, and excision sinus tract POD #2 2. Continue Pain Medications: Tylenol and oxycodone. Patient having increasing pain today. Was requiring IV morphine. At this time I have switched him from IV morphine to MS Contin 15 mg twice daily and attempt to get him on p.o. medications and prepare him to go home. 3. DVT Prophylaxis: Take 81 mg aspirin twice daily for 4 weeks postoperatively for DVT prophylaxis 4. PT/OT: Weightbearing as tolerated with walker 5. HB: 9.5, asymptomatic. Postoperative anemia secondary to acute blood loss from surgery without any intra operative complications. 6. Continue postoperative medical management per medicine. Appreciate medical input 7. Consultation infectious disease: Infectious disease has placed patient on ceftriaxone and vancomycin. Cultures are currently pending. Tibial membrane does have gram-positive cocci on Gram stain 8. Hemovac drain:Discontinued today. Minimal drainage overnight however, upon removal of the drain patient did have dark red blood from drain site. Compressive dressing was placed. Discussed with nurse may need dressing change later today if becomes saturated. 9. Encouraged Incentive Spirometry 10. Disposition: Continue to follow patient with cultures and appreciate input from infectious disease. Continue with physical therapy weightbearing as tolerated with walker. Drain was removed today. We will continue to proceed with plan to discharge home with home health care. Patient will need home he alth nursing for IV antibiotics as well as home health physical therapy for further recovery. [facility] Office:
[2021-06-22 14:41] VITALS: BP 140/61; PULSE 88; RESP 16; TEMP 36.8; O2SAT 95
[2021-06-22 16:25] LABS: Bedside Glucose 249 mg/dL (74-106)
[2021-06-22 20:29] VITALS: BP 130/65; PULSE 90; RESP 16; TEMP 37.3; O2SAT 96
[2021-06-22] MEDS: amLODIPine 10 MG Tablet PO (21:00)
[2021-06-22] MEDS: morphine SR 15 MG Tablet PO (21:00)
[2021-06-22] MEDS: Insulin Glargine-YFGN 100 UNIT/ML Pen 10 UNIT SC (21:01)
[2021-06-22] MEDS: Atorvastatin Calcium 10 MG Tablet PO (21:01)
[2021-06-22 21:10] LABS: Bedside Glucose 231 mg/dL (74-106)
[2021-06-23] MEDS: Acetaminophen 500 MG Tablet 1000 MG PO ×2 (02:28→10:43)
[2021-06-23 02:31] VITALS: BP 125/79; PULSE 80; RESP 16; TEMP 37.1; O2SAT 95
[2021-06-23] MEDS: oxyCODONE 5 MG Tablet PO ×2 (03:35→08:39)
[2021-06-23 05:46] LABS: Hematocrit 29.9 % (40-54); Hemoglobin 9.2 g/dL (13.0-16.5); Mean Corp Hgb Conc 30.8 g/dL (32-36); Mean Corpuscular Hgb 24.2 pg (27.0-32.0); Mean Corpuscular Volume 78.7 fL (80-94); Mean Platelet Vol. 9.7 fl (6.2-12.0); Platelet Count 358 K/mm3 (150-450); RBC Distribution Width CV 13.8 % (11.6-14.6); RBC Distribution Width SD 39.6 fl (35.1-43.9); White Blood Count 7.4 K/mm3 (4.4-11.0)
[2021-06-23] MEDS: Insulin Lispro 100 UNIT/ML INSULN.PEN SC ×3 (06:27→16:12)
[2021-06-23 06:31] LABS: Bedside Glucose 162 mg/dL (74-106)
[2021-06-23 06:31] LABS: ALB/GLOB Ratio 0.7 RATIO (0.9-2.4); AST(SGOT) 11 U/L (15-37); Alanine Aminotransfer ALT/SGPT 17 U/L (16-61); Albumin, Serum 2.7 g/dL (3.2-5.0); Alkaline Phosphatase 80 U/L (45-117); Anion Gap 5 (5-15); BUN 20 mg/dL (7-18); BUN/Creat Ratio 25.8 RATIO (10-20); Calcium,Total 8.8 mg/dL (8.5-10.1); Chloride 104 mmol/L (98-107); Creatinine, Serum 0.77 mg/dL (0.70-1.30); EST Glomerular Filtration Rate 105 mL/min (>60); Est Glom Filt Rate - Afr Amer 127 mL/min (>60); Estimated Creatinine Clearance 74.37 ml/min; Globulin 3.8 g/dL (2.2-4.2); Glucose 164 mg/dL (74-106); Potassium 4.2 mmol/L (3.5-5.1); Protein, Total 6.5 g/dL (6.4-8.2); Sodium Level 138 mmol/L (136-145)
--- NOTE | 2021-06-23 07:42 | PCM.PN.HOSP ---
Subjective Subjective Patient is a 71-year-old gentleman status post left total knee replacement on 05/06/2021 who presented with swelling and erythema involving the left knee and assessment of left knee infection made admitted by orthopedic surgery with consultation placed to the hospitalist service Objective Data Objective Data Vital Signs: Vital Signs Temp Pulse Resp BP Pulse Ox 98.7 F 80 16 125/79 H 95 06/23/21 02:31 06/23/21 02:31 06/23/21 02:31 06/23/21 02:31 06/23/21 02:31 Oxygen Delivery Method CPAP Weight: 87.203 kg Body Mass Index (BMI) 26.0 Intake & Output: Intake and Output for Last 24 Hours 06/21/21 06/22/21 06/23/21 23:59 23:59 23:59 Intake Total 600 / 800 1612.75 / 1612.75 530 / 530 Output Total 1425 / 1428 1403 / 1403 500 / 500 Balance -825 / -628 209.75 / 209.75 30 Lab / Micro Data Result Diagrams: 06/23/21 05:22 06/23/21 05:22 Labs: Laboratory Results - last 24 hr 06/22/21 08:31: Vancomycin Trough 11.5 06/22/21 11:22: POC Glucose 203 H 06/22/21 16:09: POC Glucose 249 H 06/22/21 20:50: POC Glucose 231 H 06/23/21 05:22: WBC 7.4, RBC 3.80 L, Hgb 9.2 L, Hct 29.9 L, MCV 78.7 L, MCH 24.2 L, MCHC 30.8 L, RDW Std Deviation 39.6, RDW Coeff of Yue 13.8, Plt Count 358, MPV 9.7 06/23/21 05:22: Sodium 138, Potassium 4.2, Chloride 104, Carbon Dioxide 29.0, Anion Gap 5, BUN 20 H, Creatinine 0.77, Estim Creat Clear Calc 74.37, Est GFR (MDRD) Af Amer 127, Est GFR (MDRD) Non-Af 105, BUN/Creatinine Ratio 25.8 H, Glucose 164 H, Calcium 8.8, Total Bilirubin 0.20, AST 11 L, ALT 17, Alkaline Phosphatase 80, Total Protein 6.5, Albumin 2.7 L, Globulin 3.8, Albumin/Globulin Ratio 0.7 L 06/23/21 06:26: POC Glucose 162 H Micro: Microbiology 06/20/21 15:37 Fluid - Synovial (joint) Gram Stain - Final 06/20/21 15:37 Fluid - Synovial (joint) Body Fluid Culture - Preliminary No growth-Final to follow 06/20/21 Unknown Tissue - Knee Gram Stain - Final 06/20/21 Unknown Tissue - Knee Wound Culture - Preliminary No growth-Final to follow 06/20/21 Unknown Tissue - Knee Gram Stain - Final 06/20/21 Unknown Tissue - Knee Wound Culture - Preliminary No growth-Final to follow 06/20/21 Unknown Tissue - Knee Gram Stain - Final 06/20/21 Unknown Tissue - Knee Wound Culture - Preliminary No growth-Final to follow 06/19/21 23:45 Nasal Secretion SARS-CoV-2 Antigen (Rapid) - Final Physical Exam Narrative GENERAL: cooperative HEENT: Atraumatic; EYES; Anicteric, Normal Conjunctiva NECK; supple, normal thyroid, RESPIRATORY: Diminished to auscultation CARDIOVASCULAR: Regular S1 S2, GI: soft, normoactive bowel sounds, : No Renal angle tenderness; EXTREMITIES: No edema, no clubbing, MUSCULOSKELETAL: Left knee surgical incision clean dry and intact NEURO: Awake; no lateralizing signs. SKIN: No Rash PSYCH; Flat affect Assessment & Plan Assessment/Plan (1) Infection of left knee: PLAN: Patient is a 71-year-old gentleman status post left total knee replacement on 05/06/2021 who presented with swelling and erythema involving the left knee and assessment of left knee infection made admitted by orthopedic surgery with consultation placed to the hospitalist service 1. Left total knee replacement infection ? Patient underwent Irrigation debridement left total knee replacement with polyethylene exchange, Complete synovectomy left knee, Sinus tract excision 3 cm x 1 cm left knee on 05/20/[address] Helms. Patient has since been managed with broad-spectrum antibiotic therapy with vancomycin and ceftriaxone ID on consult 2. Hypertension - Blood pressure controlled, home medications continued with dose adjustment as needed 3. Diabetes mellitus type II -patient's oral hypoglycemics held. Placed on long acting insulin, Accu-Cheks a.c. and at bedtime and covered with sliding scale insulin 4. Dyslipidemia -Patient is on statin therapy, continued at home dose 5. DVT prophylaxis ? As per Ortho?patient was placed on aspirin 81 mg p.o. twice daily Charges/Coding Visit Charges Inpatient E&M: 56977 Subs Hosp L2
--- NOTE | 2021-06-23 08:01 | PN.ORTHO_ITS ---
Subjective Subjective Patient is doing well. No acute events overnight. Pain remains under control. Cultures continue to be without growth we will see what today's results bring. May likely need to be discharged on current antibiotics with any changes made as an outpatient. Objective Data Objective Data Vital Signs: Vital Signs Temp Pulse Resp BP Pulse Ox 98.7 F 80 16 125/79 H 95 06/23/21 02:31 06/23/21 02:31 06/23/21 02:31 06/23/21 02:31 06/23/21 02:31 Oxygen Delivery Method CPAP Weight: 192 lb 3.995 oz Body Mass Index (BMI) 26.0 Intake & Output: Intake and Output for Last 24 Hours 06/21/21 06/22/21 06/23/21 23:59 23:59 23:59 Intake Total 600 / 800 1612.75 / 1612.75 530 / 530 Output Total 1425 / 1428 1403 / 1403 500 / 500 Balance -825 / -628 209.75 / 209.75 30 Lab / Micro Data Result Diagrams: 06/23/21 05:22 06/23/21 05:22 Labs: Laboratory Results - last 24 hr 06/22/21 08:31: Vancomycin Trough 11.5 06/22/21 11:22: POC Glucose 203 H 06/22/21 16:09: POC Glucose 249 H 06/22/21 20:50: POC Glucose 231 H 06/23/21 05:22: WBC 7.4, RBC 3.80 L, Hgb 9.2 L, Hct 29.9 L, MCV 78.7 L, MCH 24.2 L, MCHC 30.8 L, RDW Std Deviation 39.6, RDW Coeff of Yue 13.8, Plt Count 358, MPV 9.7 06/23/21 05:22: Sodium 138, Potassium 4.2, Chloride 104, Carbon Dioxide 29.0, Anion Gap 5, BUN 20 H, Creatinine 0.77, Estim Creat Clear Calc 74.37, Est GFR (MDRD) Af Amer 127, Est GFR (MDRD) Non-Af 105, BUN/Creatinine Ratio 25.8 H, Glucose 164 H, Calcium 8.8, Total Bilirubin 0.20, AST 11 L, ALT 17, Alkaline Phosphatase 80, Total Protein 6.5, Albumin 2.7 L, Globulin 3.8, Albumin/Globulin Ratio 0.7 L 06/23/21 06:26: POC Glucose 162 H Micro: Microbiology 06/20/21 15:37 Fluid - Synovial (joint) Gram Stain - Final 06/20/21 15:37 Fluid - Synovial (joint) Body Fluid Culture - Preliminary No growth-Final to follow 06/20/21 Unknown Tissue - Knee Gram Stain - Final 06/20/21 Unknown Tissue - Knee Wound Culture - Preliminary No growth-Final to follow 06/20/21 Unknown Tissue - Knee Gram Stain - Final 06/20/21 Unknown Tissue - Knee Wound Culture - Preliminary No growth-Final to follow 06/20/21 Unknown Tissue - Knee Gram Stain - Final 06/20/21 Unknown Tissue - Knee Wound Culture - Preliminary No growth-Final to follow 06/19/21 23:45 Nasal Secretion SARS-CoV-2 Antigen (Rapid) - Final Physical Exam Const alert and oriented x3 Extremity Extremity Narrative: Left lower extremity: Dressing is clean dry and intact Sensations intact to light touch saphenous, sural, superficial peroneal, deep peroneal, and tibial distributions Motors intact EHL, DF, PF calves are soft and supple Assessment & Plan Assessment/Plan (1) Infection of left knee: PLAN: 1. S/P irrigation debridement left total knee replacement with polyethylene exchange, complete synovectomy left knee, and excision sinus tract POD #3 2. Continue Pain Medications: Tylenol and oxycodone. Pain control improved with MS Contin 15 mg we will continue on MS Contin for an additional 4 days. 3. DVT Prophylaxis: Take 81 mg aspirin twice daily for 4 weeks postoperatively for DVT prophylaxis 4. PT/OT: Weightbearing as tolerated with walker 5. HB: Stable, asymptomatic. Postoperative anemia secondary to acute blood loss from surgery without any intra operative complications. 6. Continue postoperative medical management per medicine. Appreciate medical input 7. Consultation infectious disease: Infectious disease has placed patient on ceftriaxone and vancomycin. Cultures are currently pending. Tibial membrane does have gram-positive cocci on Gram stain 8. Dressing is clean and dry today. We will remove and leave open to air on postop day 5. 06/25/2021 9. Encouraged Incentive Spirometry 10. Disposition: Continue to follow patient with cultures and appreciate input from infectious disease. Continue with physical therapy weightbearing as tolerated with walker. We will continue to proceed with plan to discharge carlos alberto e with home health care today. Awaiting IV antibiotic final regimen from infectious disease. Will likely need to be discharged home with any changes to medications made as an outpatient. Patient will need home health nursing for IV antibiotics as well as home health physical therapy for further recovery. [facility] Office:
[2021-06-23 08:30] VITALS: BP 134/60; PULSE 87; RESP 16; TEMP 36.3; O2SAT 96
[2021-06-23] MEDS: Aspirin 81 MG TAB.CHEW PO (08:39)
[2021-06-23] MEDS: Pantoprazole Sodium 20 MG Tablet PO (08:39)
[2021-06-23] MEDS: Senna/Docusate Sodium 1 Tablet 2 TABLET PO (08:39)
[2021-06-23] MEDS: Ensure Surgery 237 ML LIQUID PO ×2 (08:43→12:02)
[2021-06-23] MEDS: morphine SR 15 MG Tablet PO (10:44)
[2021-06-23] MEDS: Lisinopril 40 MG Tablet PO (10:44)
[2021-06-23 12:10] LABS: Bedside Glucose 190 mg/dL (74-106)
--- NOTE | 2021-06-23 12:36 | CASEMGMT ---
Addendum entered by Henna Ochoa 06/23/21 14:38: RN CM in to pt room, pt present at bedside. Pt to learn IV. She is a retired nurse. They are aware of cost of med. Discussed delivery will be approx 8pm. Discussed other meds will be sent to [facility] per 's request. They are concerned with timing and getting pain meds prior to delivery of IV atb. Discussed expecations of HHC. Pt and deny further needs. Addendum entered by Henna Ochoa 06/23/21 14:28: Received notification from Nerissa at [facility], cost for med and supplies will be approx $812/wk. She notified pt and and they are agreeable. They plan to deliver approx 8pm. Faxed clinicals and labs to [facility]. Addendum entered by Henna Ochoa 06/23/21 13:18: Faxed [facility] picc insertion info. Addendum entered by Henna Ochoa 06/23/21 12:43: ALBER Simms at [facility] to make aware of the info below. Discussed with pt nurse ok to skip dose of atb this evening. Pt getting picc inserted at this time. Original Note: Received rx for IV atb. Discussed with ID, ok to skip PM dose of vanc with HHC to start in the AM. ALBER Simms at [facility], faxed scripts as well. They will plan to see pt in the morning. TC paulette Multani at [facility], faxed scripts as well and left vm that pt will dc today. Spoke with via tc, he is aware that rx are received and awaiting picc placement. States pt will be dc'd today.
[2021-06-23 12:38] LABS: Pathologist Comment Reviewed
--- NOTE | 2021-06-23 12:51 | PCM.PN.ID ---
Physical Exam Narrative Feeling better. No fever, no n/v/d. No pain in knee. Picc planned. Const alert and no apparent distress General Appearance: cooperative Resp normal air movement and clear to auscultation bilaterally Cardio regular rate and regular rhythm GI soft to palpation, non-tender and non-distended Extremity no clubbing, cyanosis or edema Skin no rashes or lesions noted ID ID: Route of nutrition/ use of supplements: [] Nutritional Intake: [] IV Site: [] Zuleta Catheter: [] Assessment & Plan Assessment/Plan (1) Infection of left knee: PLAN: S/p L knee replacement 05/06/[address] Andrea at [facility]. Recent course of doxy completed a week ago. OR planned for today. Taken to OR 05/20/[address] Andrea for I&D, poly exchange, excision of sinus tract. One surg cx with GPC on gram stain. Picc ordered, ok for d/c on 6 weeks iv vanc/ceftriaxone. Requested micro lab hold surg cxs for 14 days. ID followup in 2 weeks. D/w high risk case manager. Will follow
--- NOTE | 2021-06-23 15:21 | PCM.DC ---
Discharge Instructions Diet Discharge Diet: No restrictions Activity Discharge Activity: May Not Drive May shower in (days): 3 May resume sexual activity in: No Restrictions Ice area for (Minutes): 30 Weight Bearing Status: Weight bearing as tolerated Keep extremity elevated above heart level: Operative Extremity Dressing / Incision Call your doctor if your incision/area has: Continuous Slow Oozing, Sudden Increased Bleeding, Increased Pain/ Swelling, Increased Redness, Foul Smelling Discharge and Swelling at the incision site Call your doctor if you observe: Fever of 101 or Higher, Coldness, Increased Pain, Numbness or Tingling, Change in Color and Uncontrolled pain Suture Line Care: Avoid Pulling/Pushing Remove Dressing in: 5 days Cleanse incision/area with: Soap & Water Additional Dressing/Incision Instructions:: Remove dressing in 5 days leave open to air Follow Up Care Please Follow Up With: William Andrea MD When: 10-14 days Test Results: Test results from this visit will be discussed in further detail at your follow-up appointment, if applicable. Discharge Plan Admission Admit Date/Time: 06/19/21 15:23 Primary Reason for Your Visit: I&D and polyexchange of left total knee arthroplasty Attending Provider: Stanley Alfred Primary Care Provider: Quincy Torres Consulting Providers: Franki Fernandes ; Milad Ward Discharge Orders/Prescriptions Prescriptions: New ceftriaxone 2 gram recon soln 2 g IV DAILY Qty: 39 RF: 0 vancomycin 1,000 mg recon soln 1,500 mg IV Q12H 39 Days RF: 0 acetaminophen 500 mg Tablet 1,000 mg PO Q8H Qty: 60 RF: 0 aspirin 81 mg Tablet,Chewable 81 mg PO BID Qty: 60 RF: 0 morphine 15 mg Tablet Extended Release 15 mg PO BID 4 Days Qty: 8 RF: 0 oxycodone 5 mg Tablet 5 - 10 mg PO Q4H PRN PRN (Reason: Pain Score 4-10) 7 Days Qty: 56 RF: 0 Continued meloxicam 15 mg Tablet 15 mg PO DAILY RF: 0 amlodipine [Norvasc] 10 mg Tablet 10 mg PO QHS RF: 0 lisinopril 40 mg Tablet 40 mg PO DAILY RF: 0 lovastatin 20 mg Tablet Extended Release 24 Hr 20 mg PO QHS RF: 0 metformin 750 mg Tablet Extended Release 24 Hr 750 mg PO BID RF: 0 Jardiance 10 mg Tablet 10 mg PO QHS RF: 0 omeprazole 20 mg Capsule,Delayed Release(Dr/Ec) 20 mg PO DAILY RF: 0 Discontinued aspirin [Baby Aspirin] 81 mg Tablet,Chewable 81 mg PO DAILY RF: 0 Referrals / Follow Up: Quincy Torres DO [Primary Care Provider] - Disposition Disposition (needs filled in before D/C Order can be placed): Home Health Service
[2021-06-23 15:41] VITALS: BP 134/60; PULSE 87; RESP 16; TEMP 36.3; O2SAT 96
[2021-06-23 16:21] LABS: Bedside Glucose 254 mg/dL (74-106)
--- NOTE | 2021-06-25 20:01 | PCM.DC.SUM ---
Providers Date of Admission: 06/19/21 Primary Care Physician: Dr. Quincy Torres, Consultations 06/19/21 15:08 Consult: Hospitalist Routine Consulting Provider: Franki Fernandes Reason for Consult: Medical management EMERGENT Consult: No Notified: Yes Date Notified: 06/19/21 Time Notified: 15:28 Method of Notification: Text 06/19/21 15:55 Consult: Infectious Disease Routine Consulting Provider: Milad Ward Reason for Consult: l knee pji EMERGENT Consult: No Notified: Yes Date Notified: 06/19/21 Time Notified: 16:15 Method of Notification: Text 06/19/21 15:58 Consult: Infectious Disease Routine Consulting Provider: Milad Ward Reason for Consult: Lt knee infection EMERGENT Consult: No Notified: Yes Date Notified: 06/19/21 Time Notified: 16:14 Method of Notification: Text Reason For Visit: L KNEE DRAINING SINUS Diagnosis Discharge Diagnosis (1) Infection of left knee: Status: Acute Code(s): M00.9 - Pyogenic arthritis, unspecified Medications at Discharge Home Medications Jardiance 10 mg PO QHS 06/19/21 amlodipine [Norvasc] 10 mg PO QHS 06/19/21 lisinopril 40 mg PO DAILY 06/19/21 lovastatin 20 mg PO QHS 06/19/21 meloxicam 15 mg PO DAILY 06/19/21 metformin 750 mg PO BID 06/19/21 omeprazole 20 mg PO DAILY 06/20/21 acetaminophen 1,000 mg PO Q8H #60 tab 06/23/21 aspirin 81 mg PO BID #60 tab 06/23/21 ceftriaxone 2 g IV DAILY #39 ea 06/23/21 morphine 15 mg PO BID 4 Days #8 tab 06/23/21 oxycodone 5 - 10 mg PO Q4H PRN PRN 7 Days #56 tab 06/23/21 vancomycin 1,500 mg IV Q12H 39 Days ea 06/23/21 Hospital Course Operations total knee replacement Procedures PICC line placement Summary of Care Provided Hospital Course: 71-year-old male admitted to the hospital on June 19, 2021 for draining sinus of his total knee replacement. He was taken to the operating room the following day. Upon admission medicine and infectious disease was consulted. Patient was taken to the hospital on June 20 for irrigation debridement and polyethylene exchange. Patient was given a drain at that time. Drain was pulled on postoperative day 2. Wound was checked on postoperative day 2. After following cultures patient was eventually ready for discharge on ceftriaxone and vancomycin. He was discharged home with home health care. He did well postoperatively without any significant complications. Weight / BMI Weight Weight: 192 lb 3.995 oz Body Mass Index (BMI) 26.0 ABG / Lab / Microbiology Data Result Diagrams: 06/23/21 05:22 06/23/21 05:22 Microbiology: Microbiology 06/20/21 15:37 Fluid - Synovial (joint) Gram Stain - Final 06/20/21 15:37 Fluid - Synovial (joint) Body Fluid Culture - Final Culture exhibits no growth. 06/20/21 15:37 Fluid - Synovial (joint) Anaerobic Culture - Final Anaerobic cocci 06/20/21 Unknown Tissue - Knee Gram Stain - Final 06/20/21 Unknown Tissue - Knee Wound Culture - Preliminary No growth-Final to follow 06/20/21 Unknown Tissue - Knee Anaerobic Culture - Final Anaerobic cocci 06/20/21 Unknown Tissue - Knee Gram Stain - Final 06/20/21 Unknown Tissue - Knee Wound Culture - Preliminary No growth-Final to follow 06/20/21 Unknown Tissue - Knee Anaerobic Culture - Preliminary No growth in 48 hours. 06/20/21 Unknown Tissue - Knee Gram Stain - Final 06/20/21 Unknown Tissue - Knee Wound Culture - Preliminary No growth-Final to follow 06/20/21 Unknown Tissue - Knee Anaerobic Culture - Preliminary No growth in 48 hours. 06/19/21 23:45 Nasal Secretion SARS-CoV-2 Antigen (Rapid) - Final D/C Instructions Discharge Diet: No restrictions May shower in (days): 3 May resume sexual activity in: No Restrictions Ice area for (Minutes): 30 Weight Bearing Status: Weight bearing as tolerated Keep extremity elevated above heart level: Operative Extremity Call your doctor if your incision/area has: Continuous Slow Oozing, Sudden Increased Bleeding, Increased Pain/ Swelling, Increased Redness, Foul Smelling Discharge and Swelling at the incision site Call your doctor if you observe: Fever of 101 or Higher, Coldness, Increased Pain, Numbness or Tingling, Change in Color and Uncontrolled pain Suture Line Care: Avoid Pulling/Pushing Cleanse incision/area with: Soap & Water Additional Dressing/Incision Instructions: Remove dressing in 5 days leave open to air Please Follow Up With: William Andrea MD When: 10-14 days Meaningful Use Info Meaningful Use Diagnoses (Choose all that apply): None applicable Discharge Plan Admission Admit Date/Time: 06/19/21 15:23 Primary Reason for Your Visit: I&D and polyexchange of left total knee arthroplasty Attending Provider: Stanley Alfred Primary Care Provider: Quincy Torres Consulting Providers: Franki Fernandes Robert Discharge Orders/Prescriptions Prescriptions: New ceftriaxone 2 gram recon soln 2 g IV DAILY Qty: 39 RF: 0 vancomycin 1,000 mg recon soln 1,500 mg IV Q12H 39 Days RF: 0 acetaminophen 500 mg Tablet 1,000 mg PO Q8H Qty: 60 RF: 0 aspirin 81 mg Tablet,Chewable 81 mg PO BID Qty: 60 RF: 0 morphine 15 mg Tablet Extended Release 15 mg PO BID 4 Days Qty: 8 RF: 0 oxycodone 5 mg Tablet 5 - 10 mg PO Q4H PRN PRN (Reason: Pain Score 4-10) 7 Days Qty: 56 RF: 0 Continued meloxicam 15 mg Tablet 15 mg PO DAILY RF: 0 amlodipine [Norvasc] 10 mg Tablet 10 mg PO QHS RF: 0 lisinopril 40 mg Tablet 40 mg PO DAILY RF: 0 lovastatin 20 mg Tablet Extended Release 24 Hr 20 mg PO QHS RF: 0 metformin 750 mg Tablet Extended Release 24 Hr 750 mg PO BID RF: 0 Jardiance 10 mg Tablet 10 mg PO QHS RF: 0 omeprazole 20 mg Capsule,Delayed Release(Dr/Ec) 20 mg PO DAILY RF: 0 Discontinued aspirin [Baby Aspirin] 81 mg Tablet,Chewable 81 mg PO DAILY RF: 0 Referrals / Follow Up: Quincy Torres DO [Primary Care Provider] - Disposition Disposition (needs filled in before D/C Order can be placed): Home Health Service
== END 2021-06-23 16:38 | disposition home health service (06) | DRG 464 ==
PROVIDERS: Anesthesiology; Family Medicine; Internal Medicine; Internal Medicine Infectious Disease; Admitting Provider Specialist; PCP Family Medicine; Visit Provider Internal Medicine
PROC: 0SPD0JC Removal of Synthetic Substitute from Left Knee Joint, Patellar Surface, Open Approach (ICD-10-PCS; CPT 27301; principal; 2021-06-20 14:45)
DX: T84.54XA Infection and inflammatory reaction due to internal left knee prosthesis, initial encounter (principal); D62 Acute posthemorrhagic anemia; E11.9 Type 2 diabetes mellitus without complications; M06.9 Rheumatoid arthritis, unspecified; E78.5 Hyperlipidemia, unspecified; I10 Essential (primary) hypertension; G47.30 Sleep apnea, unspecified; R00.0 Tachycardia, unspecified; Z28.310 Unvaccinated for COVID-19; Z79.82 Long term (current) use of aspirin; Z79.84 Long term (current) use of oral hypoglycemic drugs; Z79.899 Other long term (current) drug therapy; Y79.2 Prosthetic and other implants, materials and accessory orthopedic devices associated with adverse incidents
CPT/HCPCS: 36415; 36569; 73560; 80048; 80053; 80202; 82962; 83036; 85025; 85027; 87015; 87070; 87075; 87077; 87102; 87116; 87176; 87205; 87206; 87426; 88305; 88311; 89050; 89051; 93005; 97161; 97165; 97802; 99251; C1776; J7040; J7050; J7120; A4216; G0463; J0696; J2405

== ENCOUNTER 2021-06-30 13:52 | Outpatient (RCR) | payer MEDICARE, OTHER, SELFPAY ==
[2021-06-30 14:55] LABS: Anion Gap 6 (5-15); BUN 27 mg/dL (7-18); BUN/Creat Ratio 29.6 RATIO (10-20); Calcium,Total 9.1 mg/dL (8.5-10.1); Chloride 104 mmol/L (98-107); Creatinine, Serum 0.91 mg/dL (0.70-1.30); EST Glomerular Filtration Rate 87 mL/min (>60); Est Glom Filt Rate - Afr Amer 105 mL/min (>60); Glucose 221 mg/dL (74-106); Potassium 4.4 mmol/L (3.5-5.1); Sodium Level 136 mmol/L (136-145); Vancomycin, Trough Level 19.1 ug/mL (5.0-15.0)
[2021-06-30 14:59] LABS: Erythrocyte Sedimentation Rate 54 mm/hr (0-20); Hematocrit 31.5 % (40-54); Hemoglobin 9.5 g/dL (13.0-16.5); Mean Corp Hgb Conc 30.2 g/dL (32-36); Mean Corpuscular Hgb 24.4 pg (27.0-32.0); Mean Corpuscular Volume 80.8 fL (80-94); Mean Platelet Vol. 10.5 fl (6.2-12.0); Platelet Count 404 K/mm3 (150-450); RBC Distribution Width CV 14.6 % (11.6-14.6); RBC Distribution Width SD 42.4 fl (35.1-43.9); White Blood Count 8.6 K/mm3 (4.4-11.0)
== END 2021-07-05 23:59 ==
LOC: HHLAB 13:52
PROVIDERS: PCP Family Medicine; Visit Provider Internal Medicine Infectious Disease
DX: M00.9 Pyogenic arthritis, unspecified (principal)
CPT/HCPCS: 80048; 80202; 85027; 85652

== ENCOUNTER 2021-07-28 10:29 | Outpatient (RCR) | payer MEDICARE, OTHER, SELFPAY ==
[2021-07-07 12:22] LABS: Erythrocyte Sedimentation Rate 48 mm/hr (0-20)
[2021-07-07 12:23] LABS: Hematocrit 33.2 % (40-54); Hemoglobin 10.2 g/dL (13.0-16.5); Mean Corp Hgb Conc 30.7 g/dL (32-36); Mean Corpuscular Hgb 24.5 pg (27.0-32.0); Mean Corpuscular Volume 79.8 fL (80-94); Mean Platelet Vol. 10.7 fl (6.2-12.0); Platelet Count 409 K/mm3 (150-450); RBC Distribution Width CV 14.6 % (11.6-14.6); RBC Distribution Width SD 42.4 fl (35.1-43.9); Red Blood Count 4.16 M/mm3 (4.6-6.2); White Blood Count 6.9 K/mm3 (4.4-11.0)
[2021-07-07 12:58] LABS: Vancomycin, Trough Level 17.4 ug/mL (5.0-15.0)
[2021-07-07 13:06] LABS: Anion Gap 8 (5-15); BUN 21 mg/dL (7-18); BUN/Creat Ratio 24.4 RATIO (10-20); Calcium,Total 9.1 mg/dL (8.5-10.1); Chloride 104 mmol/L (98-107); Creatinine, Serum 0.86 mg/dL (0.70-1.30); EST Glomerular Filtration Rate 93 mL/min (>60); Est Glom Filt Rate - Afr Amer 113 mL/min (>60); Glucose 265 mg/dL (74-106); Potassium 4.5 mmol/L (3.5-5.1); Sodium Level 135 mmol/L (136-145)
[2021-07-14 12:42] LABS: Erythrocyte Sedimentation Rate 29 mm/hr (0-20)
[2021-07-14 12:43] LABS: Hematocrit 33.8 % (40-54); Hemoglobin 10.2 g/dL (13.0-16.5); Mean Corp Hgb Conc 30.2 g/dL (32-36); Mean Corpuscular Hgb 24.1 pg (27.0-32.0); Mean Corpuscular Volume 79.7 fL (80-94); Mean Platelet Vol. 10.5 fl (6.2-12.0); Platelet Count 330 K/mm3 (150-450); RBC Distribution Width CV 14.4 % (11.6-14.6); RBC Distribution Width SD 41.5 fl (35.1-43.9); Red Blood Count 4.24 M/mm3 (4.6-6.2); White Blood Count 5.3 K/mm3 (4.4-11.0)
[2021-07-14 12:50] LABS: Anion Gap 7 (5-15); BUN 28 mg/dL (7-18); BUN/Creat Ratio 32.9 RATIO (10-20); Calcium,Total 8.6 mg/dL (8.5-10.1); Chloride 104 mmol/L (98-107); Creatinine, Serum 0.85 mg/dL (0.70-1.30); EST Glomerular Filtration Rate 94 mL/min (>60); Est Glom Filt Rate - Afr Amer 114 mL/min (>60); Glucose 252 mg/dL (74-106); Potassium 4.4 mmol/L (3.5-5.1); Sodium Level 138 mmol/L (136-145)
[2021-07-21 17:47] LABS: Erythrocyte Sedimentation Rate 24 mm/hr (0-20)
[2021-07-21 17:48] LABS: Hematocrit 34.8 % (40-54); Hemoglobin 10.6 g/dL (13.0-16.5); Mean Corp Hgb Conc 30.5 g/dL (32-36); Mean Corpuscular Volume 78.7 fL (80-94); Mean Platelet Vol. 10.5 fl (6.2-12.0); Platelet Count 327 K/mm3 (150-450); RBC Distribution Width CV 14.2 % (11.6-14.6); RBC Distribution Width SD 40.7 fl (35.1-43.9); Red Blood Count 4.42 M/mm3 (4.6-6.2); White Blood Count 6.8 K/mm3 (4.4-11.0)
[2021-07-21 17:55] LABS: Anion Gap 7 (5-15); BUN 33 mg/dL (7-18); BUN/Creat Ratio 35.2 RATIO (10-20); Calcium,Total 8.9 mg/dL (8.5-10.1); Chloride 104 mmol/L (98-107); Creatinine, Serum 0.94 mg/dL (0.70-1.30); EST Glomerular Filtration Rate 84 mL/min (>60); Est Glom Filt Rate - Afr Amer 102 mL/min (>60); Glucose 136 mg/dL (74-106); Potassium 4.7 mmol/L (3.5-5.1); Sodium Level 137 mmol/L (136-145)
[2021-07-28 12:37] LABS: Erythrocyte Sedimentation Rate 17 mm/hr (0-20)
[2021-07-28 12:44] LABS: Hematocrit 34.9 % (40-54); Hemoglobin 10.6 g/dL (13.0-16.5); Mean Corp Hgb Conc 30.4 g/dL (32-36); Mean Corpuscular Hgb 23.7 pg (27.0-32.0); Mean Corpuscular Volume 78.1 fL (80-94); Mean Platelet Vol. 10.5 fl (6.2-12.0); Platelet Count 336 K/mm3 (150-450); RBC Distribution Width SD 39.7 fl (35.1-43.9); Red Blood Count 4.47 M/mm3 (4.6-6.2)
[2021-07-28 13:06] LABS: Ferritin 72 ng/mL (26-388); Iron 33 ug/dL (65-175); Iron Binding Capacity,Total 330 ug/dL (250-450)
[2021-07-28 13:19] LABS: Anion Gap 10 (5-15); BUN 28 mg/dL (7-18); BUN/Creat Ratio 33.6 RATIO (10-20); Calcium,Total 8.9 mg/dL (8.5-10.1); Chloride 104 mmol/L (98-107); Creatinine, Serum 0.83 mg/dL (0.70-1.30); EST Glomerular Filtration Rate 97 mL/min (>60); Est Glom Filt Rate - Afr Amer 117 mL/min (>60); Glucose 242 mg/dL (74-106); Potassium 4.5 mmol/L (3.5-5.1); Sodium Level 137 mmol/L (136-145)
== END 2021-07-28 18:00 | disposition home or self-care (01) ==
LOC: HHLAB 10:29
PROVIDERS: PCP Family Medicine; Visit Provider Internal Medicine Infectious Disease
DX: T84.54XA Infection and inflammatory reaction due to internal left knee prosthesis, initial encounter (principal); D64.9 Anemia, unspecified; G25.81 Restless legs syndrome
CPT/HCPCS: 80048; 80202; 82728; 83540; 83550; 85027; 85652

== ENCOUNTER 2023-07-28 11:30 | Outpatient (RCR) | payer MEDICARE, OTHER, SELFPAY ==
--- NOTE | 2023-07-13 08:06 | HP.OTEVAL_ITS ---
Patient's Visit Information Visit Information Visit Information: JOSÉ MIGUEL SANCHEZ is a 73 year old M, referred to Occupational Therapy by AMY Tian, with a diagnosis of mallet finger. Date of Evaluation: 07/08/23 Occupational Therapist: Kitty Moody, SARA/Meenakshi, CHT Subjective Subjective: This 73 year old male was seen for OT eval with dx of right ring finger mallet finger- right finger pain. pt states about 7 weeks ago pt states she had a fall and fx the tip of his finger. pt states because he had a laceration they had that healed and then with to . pt states ween about a week without support- then he put his finger in a splint and went to ortho splinted for another 4 weeks- if splint was not on he was keeping his finger flat on something. pt states he was told he could go without his splints on now but has been wearing at night because finger is painful. States he can sleep better with it protected for now. pt is right handed. pain with ROM pt limited with ADLs and IADLs at this time. Pain right finger pain: Current Pain Intensity: 2 Pain Intensity Range: 5 ROM DIP: right RF -15 left -5 ROM Comments: pt demo with PROM to -5* pain at rest and increase pain with ROM pt demo with multi joint OA deformities Quick DASH-Disab of Arm,Shoulder& Hand Quick DASH Score: 11.3625 Goals Goal:100% adherence to protocol: Yes Comment: mallet finger guidelines Goal:ROM equal to unaffected hand: Yes Comment: increase in DIP ext of right RF Goal:No pain with affected hand use: Yes Goal:Full use of affected hand in daily activities including work: Yes Rehabilitation General Assessment: pt arrives possibly 7 -8 weeks from mallet finger injury, pt is limited with his ROM and pain with use of right hand since injury- pt would benefit from skilled OT services 1-2 x week for 8 weeks. to ed, pt on dx and due to increase pain when out of splint therapist ed.pt and spouse on a gradual weaning from orthosis to limit stress on repairing tendon. Today pt and his were ed, on dx and orthosis use at this time for heavy work tasks and to avoid aggressive forced flexion. Therapy will continue to rehab pt to his PLOF. Pt and pts spouse demo understanding and agree to POC. Rehabilitation Potential: Good Anticipated Interventions Anticipated Interventions: A/AAROM/PROM, Desensitization, Modalities, Orthoses, Joint Protection/Energy Conservation, Ergonomic Education, Education re Diagnosis and Home Program Visit Plan Frequency: 1-2x /Week Duration: 6 Weeks General Plan: will initiate a gradual wean from a right RF DIP mallet finger- use of supportive devices to limit pts feeling of finger tip floppy TEXT: Thank you for the opportunity to evaluate your patient. For Medicare and Medicare HMO plans, please review the plan of care and approve it. It will need to be FAXED BACK to us at [phone] for Medicare purposes. Please let me know if there are questions or concerns regarding this plan of care. Physician S ignature: Date:
--- NOTE | 2023-07-28 12:10 | HP.OTDCSUM_ITS ---
Discharge Summary D/C Summary: It has been my pleasure to treat JOSÉ MIGUEL SANCHEZ under orders from AMY Tian, for the diagnosis of mallet finger for a total of 3 visit(s). Please see the following information for a summary of their discharge status. Overall Improvement % Improvement: 0 Objective Objective/Function: Pt demo with DIP at -10* but after going without splint on pts finger drops to -25* pt states he is ok with not being able to straighten finger tip- pt states pain is less to almost nothing and he is happy with this- Goals Patient Goals: Decrease Pain, Use Hand/Wrist/Arm Normally Again and Be More Independent in ADLS Goal:100% adherence to protocol: Yes Goal:ROM equal to unaffected hand: Yes Goal:No pain with affected hand use: Yes Goal:Full use of affected hand in daily activities including work: Yes Plan Plan: pt to continue to use splint or k-tape as needed for support. pt agrees with D/C. D/C Information Discharge Comments: pt agrees to D/C . using hand with daily tasks and has adj. to wearing splint with woodworking and or k- tape for a little support as he feels- pt has returned to using his hand at IND. level. pt agrees with d/c d/c sentence: If there are questions or concerns regarding this patient's occupational therapy, please fell free to call me at [phone]. Thank you for the ref erral of this patient. Sincerely, Kitty Moody, OTR/L, CHT
== END 2023-07-28 19:00 | disposition home or self-care (01) ==
LOC: OT 11:30
PROVIDERS: PCP Family Medicine; Referring Provider Physician Assistant; Visit Provider Physician Assistant
DX: M20.011 Mallet finger of right finger(s) (principal); M79.644 Pain in right finger(s)
CPT/HCPCS: 97166; 97530

== ENCOUNTER 2023-09-01 08:51 | Outpatient (RCR) | payer MEDICARE, OTHER, SELFPAY ==
--- NOTE | 2023-09-02 17:19 | HP.OTEVAL_ITS ---
Patient's Visit Information Visit Information Visit Information: JOSÉ MIGUEL SANCHEZ is a 73 year old M, referred to Occupational Therapy by Dr. Catalino Degroot MD, with a diagnosis of right RF laceration / right hand stiffness. Date of Evaluation: 09/01/23 Occupational Therapist: SARA Magdaleno/Meenakshi, CHT Subjective Subjective: This 73 year old male was seen for OT eval with dx of right hand joint stiffness, laceration w/p FB or right ring finger w/o damage to nail. pt injury. pt arrives with order for ROM and strengthening pt states he is using his hand all the time- wood working as well as other daily mtg. tasks- denies issues with strength. ROM ROM Comments: right RF DIP -35/60 left -5/40 pt demo with positive mallet finger deformity from laceration pt demo the ability to form full tight fist Strength Security Compliance Specialist: right 60# left 65# Sensation Sensation Comments: denies Quick DASH-Disab of Arm,Shoulder& Hand Quick DASH Score: 0 Rehabilitation General Assessment: pt demo with full composite fist and functional laborer laboratory strength- pt at this time was given HEP no further skilled therapy needed. to call with questions or concerns. Rehabilitation Potential: Excellent Anticipated Interventions Anticipated Interventions: A/AAROM/PROM, Strengthening, Modalities, Joint Protection/Energy Conservation, Caregiver Training and Home Program Visit Plan General Plan: pt to continue with use of right hand with his ADLs and IADls pt advised burning sensation at DIP dorsum of right RF for about 6 -9 weeks. pt ed. on joint protection [place]ingo edema control and modalities pts and pt demo understanding of dx and healing. TEXT: Thank you for the opportunity to evaluate your patient. For Medicare and Medicare HMO plans, please review the plan of care and approve it. It will need to be FAXED BACK to us at [phone] for Medicare purposes. Please let me know if there are questions or concerns regarding this plan of care. Physician Signature: ___Date:
== END 2023-09-01 19:00 | disposition home or self-care (01) ==
LOC: OT 08:51
PROVIDERS: PCP Family Medicine; Referring Provider Orthopaedic Surgery Hand Surgery; Visit Provider Orthopaedic Surgery Hand Surgery
DX: S61.214D Laceration without foreign body of right ring finger without damage to nail, subsequent encounter (principal); M25.641 Stiffness of right hand, not elsewhere classified
CPT/HCPCS: 97166